=== PATIENT | male | born 1995 | race African-American/Black ===

== ENCOUNTER 2016-11-21 20:32 | Emergency (ER) | payer SELFPAY ==
[~2016-11-21] VITALS: Ht 188 cm; Wt 76.0 kg
[2016-11-21] MEDS ORDERED: AMOXICILLIN500 MG PO (21:16)
[2016-11-21] MEDS ORDERED: MOTRIN800 MG PO (21:16)
[2016-11-21 21:24] VITALS: BP 138/88
== END 2016-11-21 21:25 | disposition home or self-care (01) ==
LOC: EME 20:32
DX: K02.9 Dental caries, unspecified (principal); F17.200 Nicotine dependence, unspecified, uncomplicated
CPT/HCPCS: 99281; 99284